=== PATIENT | female | born 1990 | race Caucasian/White ===

== ENCOUNTER 2016-06-02 04:01 | Emergency (ER) | payer BC ==
[~2016-06-02] VITALS: Ht 177.8 cm; Wt 64.4 kg
[2016-06-02 04:03] VITALS: TEMP 36.4; Ht 177.8 cm; Wt 64.4 kg
[2016-06-02] MEDS ORDERED: ONDANSETRON INJ 2 MG/ML 2 ML VIAL IV STA (04:35)
[2016-06-02] MEDS ORDERED: SODIUM CHLORIDE 0.9% 1000ML 2,000 ML IV STA (04:35)
[2016-06-02] MEDS ORDERED: KETOROLAC TROMETHAMINE 30 MG/ML VIAL IV STA (04:35)
--- NOTE | 2016-06-02 04:44 | EMERGENCY ROOM VISIT NOTE ---
History Report prepared by Roshan: Alex Reddy Under the Supervision of: Dr. Antonio Bravo M.D. First contact with patient: 04:31 Chief Complaint: VOMITING Stated Complaint: VOMITING SINCE JUST BEFORE 12AM Nursing Triage Summary: pt states "I've been vomiting for 4 hours." denies pain at this time, reports she gets abd pain before vomiting. pt states she has no pmh. reports feeling "a little" sick yesterday evening. denies diarrhea or urinary symptoms. alert and oriented x4. breathing WNL. no vomiting noted at this time. History of Present Illness The patient is a 26 year old female who presents to the Emergency Room with complaints of vomiting that began 4 hours ago. The patient notes that she felt fine yesterday. 7 hours ago, the patient began to have diffuse abdominal pain. This then progressed into nausea, which progressed into the episodes of emesis. She states that she has ad around 11 episodes of emesis. She cannot hold any food or liquids down. She denies any fever, diarrhea, or urinary symptoms. When she is about to vomit, she gets cold and has abdominal pain. Afterward, she then gets hot. She is on oral control. She states that she is not . She denies eating any abnormal foods. She denies any abdominal surgeries in the past. Source of History: patient Onset: 4 hours ago Position: other (GI) Symptom Intensity: 11 episodes Quality: other (Emesis) Timing: intermittent Associated Symptoms: + abdominal pain, + chills, + nausea, No diarrhea, No urinary symptoms Review of Systems See HPI for pertinent positives & negatives. A total of 10 systems reviewed and were otherwise negative. Past Medical & Surgical Medical Problems: (1) No Known Active Medical Problems Family History Patient reports no known family medical history. Social History Smoking Status: Never Smoker Smokeless Tobacco Use: No Drug Use: none Marital Status: single Housing Status: lives with family Current/Historical Medications Scheduled Control Pills ( Control Pills), 1 TAB PO DAILY Ondasetron Odt (Zofran Odt), 4-8 MG SL Q6H Allergies Coded Allergies: No Known Allergies (Unverified , 06/02/16) Physical Exam Vital Signs Date Time Temp Pulse Resp B/P Pulse Ox O2 Delivery O2 Flow Rate FiO2 06/02/16 06:58 85 16 116/66 96 Room Air 06/02/16 06:03 77 18 104/51 97 Room Air 06/02/16 04:03 36.4 130 18 144/88 99 Room Air Physical Exam GENERAL: Patient is in no acute distress. HEENT: No acute trauma, normocephalic atraumatic, mucous membranes dry, no nasal congestion, no scleral icterus. NECK: No stridor, no adenopathy, no meningismus, trachea is midline. LUNGS: Clear to auscultation bilaterally, no wheeze, no rhonchi, breath sounds equal. HEART: Without murmurs gallops or rubs, regular rate and rhythm. ABDOMEN: Soft, mildly diffusely tender, bowel sounds positive, no hernias, no peritonitis. EXTREMITIES: No cyanosis or edema, full range of motion of all the joints without pain or difficulty, no signs for acute trauma. NEUROLOGIC: Oriented x 3, no acute motor or sensory deficits, no focal weakness. SKIN: No rash, no jaundice, no diaphoresis. Medical Decision & Procedures ER Provider Diagnostic Interpretation: Radiology results are stated below per my review and radiologist interpretation: XRAY Obstruction Series: No pneumonia or free air, no bowel obstruction, mild constipation noted. Per me Laboratory Results 06/02/16 04:44 Red Blood Count 5.28, Mean Corpuscular Volume 89.8, Mean Corpuscular Hemoglobin 31.3, Mean Corpuscular Hemoglobin Concent 34.8, Mean Platelet Volume 10.6, Neutrophils (%) (Auto) 94.3, Lymphocytes (%) (Auto) 3.8, Monocytes (%) (Auto) 1.2, Eosinophils (%) (Auto) 0.4, Basophils (%) (Auto) 0.1, Neutrophils # (Auto) 15.43, Lymphocytes # (Auto) 0.63, Monocytes # (Auto) 0.20, Eosinophils # (Auto) 0.06, Basophils # (Auto) 0.02 06/02/16 04:44 Test 06/02/16 04:44 06/02/16 06:18 White Blood Count 16.38 K/uL (4.8-10.8) Red Blood Count 5.28 M/uL (4.2-5.4) Hemoglobin 16.5 g/dL (12.0-16.0) Hematocrit 47.4 % (37-47) Mean Corpuscular Volume 89.8 fL (80-100) Mean Corpuscular Hemoglobin 31.3 pg (25-34) Mean Corpuscular Hemoglobin Concent 34.8 g/dl (32-36) Platelet Count 349 K/uL (130-400) Mean Platelet Volume 10.6 fL (7.4-10.4) Neutrophils (%) (Auto) 94.3 % Lymphocytes (%) (Auto) 3.8 % Monocytes (%) (Auto) 1.2 % Eosinophils (%) (Auto) 0.4 % Basophils (%) (Auto) 0.1 % Neutrophils # (Auto) 15.43 K/uL (1.4-6.5) Lymphocytes # (Auto) 0.63 K/uL (1.2-3.4) Monocytes # (Auto) 0.20 K/uL (0.11-0.59) Eosinophils # (Auto) 0.06 K/uL (0-0.5) Basophils # (Auto) 0.02 K/uL (0-0.2) RDW Standard Deviation 40.2 fL (36.4-46.3) RDW Coefficient of Variation 12.3 % (11.5-14.5) Immature Granulocyte % (Auto) 0.2 % Immature Granulocyte # (Auto) 0.04 K/uL (0.00-0.02) Anion Gap 8.0 mmol/L (3-11) Est Creatinine Clear Calc Drug Dose 114.5 ml/min Estimated GFR () 125.3 Estimated GFR (Non- 108.1 BUN/Creatinine Ratio 17.8 (10-20) Calcium Level 9.0 mg/dl (8.5-10.1) Total Bilirubin 0.6 mg/dl (0.2-1) Aspartate Amino Transf (AST/SGOT) 16 U/L (15-37) Alanine Aminotransferase (ALT/SGPT) 22 U/L (12-78) Alkaline Phosphatase 74 U/L (45-117) Total Protein 8.2 gm/dl (6.4-8.2) Albumin 4.1 gm/dl (3.4-5.0) Globulin 4.1 gm/dl (2.5-4.0) Albumin/Globulin Ratio 1.0 (0.9-2) Lipase 181 U/L (73-393) Urine Color DK YELLOW Urine Appearance CLOUDY (CLEAR) Urine pH 5.5 (4.5-7.5) Urine Specific [place] 1.032 (1.000-1.030) Urine Protein NEG (NEG) Urine Glucose (UA) NEG (NEG) Urine Ketones 1+ (NEG) Urine Occult Blood NEG (NEG) Urine Nitrite NEG (NEG) Urine Bilirubin NEG (NEG) Urine Urobilinogen NEG (NEG) Urine Leukocyte Esterase MODERATE (NEG) Urine WBC (Auto) 10-30 /hpf (0-5) Urine RBC (Auto) 0-4 /hpf (0-4) Urine Hyaline Casts (Auto) /lpf (0-5) Urine Epithelial Cells (Auto) >30 /lpf (0-5) Urine Bacteria (Auto) NEG (NEG) Urine Renal Epithelial Cells /lpf (0-5) Urine Pathogenic Casts /lpf (0) Urine Mucus PRESENT (NONE PRSENT) Urine Test NEG (NEG) Laboratory results reviewed by me. Medications Administered Medications (Trade) Dose Ordered Sig/Elijah Route Start Time Stop Time Status Last Admin Dose Admin Sodium Chloride (Nss 1000ml) 2,000 ml @ 999 mls/hr Q2H1M STAT IV 06/02/16 04:35 06/02/16 06:35 DC 06/02/16 04:49 999 MLS/HR Ondansetron HCl (Zofran Inj) 4 mg NOW STAT IV 06/02/16 04:35 06/02/16 04:37 DC 06/02/16 04:51 4 MG Ketorolac Tromethamine (Toradol Inj) 30 mg NOW STAT IV 06/02/16 04:35 06/02/16 04:37 DC 06/02/16 04:52 30 MG Ondansetron HCl (ZOFRAN ODT 4MG Home Pack) 1 homepack UD ONCE PO 06/02/16 06:45 06/02/16 06:46 DC 06/02/16 06:58 1 HOMEPACK ED Course 0431: The patient was evaluated in room B11B. A complete history and physical exam was performed. 0435: Ordered Toradol Inj 30 mg IV, Zofran Inj 4 mg IV, Sodium Chloride 2000 ml @ 999 mls/hr IV 0645: Ordered Ondansetron HCl 1 homepack PO 0700: Reevaluated the patient. Discussed results and discharge instructions: She verbalized understanding and agreement. The patient is ready for discharge. Medical Decision Differential diagnosis includes but is not limited to viral illness, dehydration , electrolyte imbalance, bowel obstruction, biliary colic, UTI, and . There is a moderate leukocytosis at 16,000, this could be consistent with infection or just the vomiting. No significant anemia. No significant electrolyte abnormality, kidney failure, hepatitis or pancreatitis. Urinalysis shows contamination, no obvious infection. testing is negative. Obstruction series shows no pneumonia, free air or bowel obstruction. On exam, there was no peritonitis. The patient was not toxic or febrile. The patient received IV saline, IV Toradol and IV Zofran, she feels improved, her heart rate has normalized. The patient is being discharged with Zofran, a bland diet, rest. She was counseled about the possibility of an early appendicitis. Certainly, her illness seems viral but appendicitis must always be considered. The patient will return here if worsening. She was discharged with some Zofran to use for persistent nausea/vomiting. Impression Primary Impression: Nausea and vomiting Additional Impression: Dehydration Scribe Attestation The scribe's documentation has been prepared under my direction and personally reviewed by me in its entirety. I confirm that the note above accurately reflects all work, treatment, procedures, and medical decision making performed by me. Departure Information Dispostion Home / Self-Care Prescriptions Ondasetron Odt (ZOFRAN ODT) 4 Mg Tab 4-8 MG SL Q6H for Nausea, #12 TAB Prov: Antonio Bravo M.D. 06/02/16 Referrals Hali Stone M.D. (PCP) Forms HOME CARE DOCUMENTATION FORM, IMPORTANT VISIT INFORMATION Patient Instructions My [facility] Additional Instructions zofran 1-2 tab every 6 hours for nausea tylenol for pain slowly advance the diet---crackers, soup, toast, gatorade rest return if worsening or not improving Problem Qualifiers
[2016-06-02 04:54] LABS: BASO % 0.1 %; BASO ABS # 0.02 K/uL (0-0.2); COMPLETE YES; EOS % 0.4 %; HEMATOCRIT 47.4 % (37-47); IG% 0.2 %; LYMPH % 3.8 %; LYMPH ABS # 0.63 K/uL (1.2-3.4); MEAN CELL VOLUME 89.8 fL (80-100); MEAN CORPUSCULAR HEMOGLOBIN 31.3 pg (25-34); MEAN CORPUSCULAR HGB CONC 34.8 g/dl (32-36); MEAN PLATELET VOLUME 10.6 fL (7.4-10.4); MONO % 1.2 %; NEUT % 94.3 %; PLATELET COUNT 349 K/uL (130-400); RED BLOOD COUNT 5.28 M/uL (4.2-5.4); WHITE BLOOD COUNT 16.38 K/uL (4.8-10.8)
[2016-06-02 05:16] LABS: BUN/CREATININE RATIO 17.8 (10-20); CREATININE 0.77 mg/dl (0.60-1.20); POTASSIUM 3.8 mmol/L (3.5-5.1)
[2016-06-02] MEDS ORDERED: BCPILLS PO (05:54)
[2016-06-02 06:37] LABS: URINE APPEARANCE CLOUDY (CLEAR); URINE BILIRUBIN NEG (NEG); URINE COLOR DK YELLOW; URINE EPITHELIAL CELL AUTO >30 /lpf (0-5); URINE NITRITE NEG (NEG); URINE PH 5.5 (4.5-7.5); URINE SPECIFIC GRAVITY 1.032 (1.000-1.030); UROBILINOGEN NEG (NEG); ZZUR CULT IF INDIC CLEAN CATCH YES
[2016-06-02 06:39] LABS: MANUAL MICROSCOPIC REQUIRED? NO; REVIEW REQ? YES
[2016-06-02] MEDS ORDERED: ONDA4TAB10 SL (06:40)
[2016-06-02] MEDS ORDERED: ONDANSETRON HOME PACK 4MG OD TAB PO ONE (06:45)
[2016-06-02 06:49] LABS: URINE MUCUS PRESENT (NONE PRSENT)
[2016-06-02 06:58] VITALS: BP 116/66; PULSE 85; O2SAT 96
--- NOTE | 2016-06-02 08:39 | DIAGNOSTIC IMAGING REPORT ---
ABDOMEN 2VIEW W/PA CHEST RTN CLINICAL HISTORY: Generalized abdominal pain COMPARISON STUDY: No previous studies for comparison. FINDINGS: The erect chest reveals no evidence of free air. There is no evidence of focal pulmonary consolidation.] Erect and supine views of the abdomen reveal no abnormally dilated loops of large or small bowel. There are no transition zone to indicate bowel obstruction. There are few scattered nonspecific right lower quadrant air-fluid levels. IMPRESSION: Nonspecific right lower quadrant air-fluid levels. No evidence of bowel obstruction. No evidence of free air. No active disease in the chest. Electronically signed by: Solo Claudio M.D. 06/02/2016 8:38 AM Dictated Date/Time: 06/02/2016 8:37 AM
== END 2016-06-02 07:05 | disposition home or self-care (01) ==
LOC: C.EDB 04:03
DX: R11.10 Vomiting, unspecified (principal); E86.0 Dehydration; D72.829 Elevated white blood cell count, unspecified